=== PATIENT | female | born 1990 | race American Indian/Alaskan Native ===

== ENCOUNTER 2018-07-27 17:44 | Emergency (ER) | payer MEDICAID, OTHER ==
[2018-07-27 17:45] VITALS: BMI 30.1
[2018-07-27 18:12] VITALS: RESP 18; O2SAT 100
[2018-07-27] MEDS ORDERED: Sodium Chloride 0.9% 1,000 ML IV STA (18:18)
[2018-07-27 19:01] LABS: PH,URINE 6.5 (4.7-8.0); URINE BILIRUBIN SMALL (NEGATIVE); URINE BLOOD SMALL (NEGATIVE); URINE GLUCOSE (UA) NEGATIVE (NEGATIVE); URINE LEUKOCYTE ESTERASE SMALL Leu/uL (NEGATIVE); URINE PROTEIN 30 mg/dL (<30 mg/dL)
[2018-07-27 19:02] LABS: URINE APPEARANCE CLEAR (CLEAR); URINE COLOR YELLOW (YELLOW)
[2018-07-27 19:08] LABS: ALB/GLOB RATIO 1.5 (1.1-1.8); ALBUMIN 4.5 g/dL (3.0-4.8); ALT/SGPT 22 U/L (7-56); AST/SGOT 17 U/L (14-36); BLOOD UREA NITROGEN 11 mg/dL (7-21); CALCIUM 9.7 mg/dL (8.4-10.5); GFR NON-AFRICAN AMERICAN > 60
[2018-07-27] MEDS ORDERED: Potassium Chloride 20 mEq ER Tab PO STA (19:11)
[2018-07-27 19:15] LABS: BASO # 0.03 K/mm3 (0.0-2.0); BASO % 0.4 % (0.0-3.0); EOS # 0.1 (0.0-0.7); EOS % 0.7 % (1.5-5.0); GRAN # 4.44 (1.4-6.5); GRAN % 63.6 % (50.0-68.0); LYMPH # 1.8 (1.2-3.4); LYMPH % 25.8 % (22.0-35.0); MEAN CELL VOLUME 85.5 fl (80.0-105.0); MEAN CORPUSCULAR HEMOGLOBIN 29.8 pg (25.0-35.0); MEAN CORPUSCULAR HGB CONC 34.8 g/dl (31.0-37.0); MEAN PLATELET VOLUME 9.9 fl (7.0-11.0); MONO # 0.7 (0.1-0.6); MONO % 9.5 % (1.0-6.0); RBC 4.7 10^6/uL (3.5-6.1); RED CELL DISTRIBUTION WIDTH 13.5 % (11.5-14.5); URINE BACTERIA MANY (NEG); URINE CALCIUM OXALATE CRYSTALS FEW /hpf
--- NOTE | 2018-07-27 19:15 | ED PDOC ---
Arrival/HPI - General Chief Complaint: GI Problem Time Seen by Provider: 07/27/18 18:17 Historian: Patient - History of Present Illness Narrative History of Present Illness (Text): 07/27/18 19:13 27-year-old female presents today with a one-week history of nausea and vomiting. Patient denies fevers or chills. Denies chest pain or shortness of breath. Patient states she is unsure of her last menstrual period. Patient states she's been feeling nauseous throughout the days and has been vomiting frequently. She is complaining of some slight abdominal pain which she relates to frequent vomiting. She denies pain in the back. She denies dysuria. She denies vaginal bleeding or vaginal discharge. No other complaints Past Medical History - Provider Review Nursing Documentation Reviewed: Yes - Travel History Have you recently traveled outside [place] w/in the past 3 mons?: No - Psychiatric Hx Substance Use: No - Anesthesia Hx Anesthesia: No Hx Anesthesia Reactions: No Hx Malignant Hyperthermia: No Family/Social History - Physician Review Nursing Documentation Reviewed: Yes Family/Social History: Unknown Family HX Smoking Status: Never Smoked Hx Alcohol Use: No Hx Substance Use: No Allergies/Home Meds Allergies/Adverse Reactions: Allergies No Known Allergies Allergy (Verified 05/12/16 16:46) Review of Systems - Review of Systems Constitutional: absent: Fatigue, Fevers Respiratory: absent: SOB, Cough Cardiovascular: absent: Chest Pain, Palpitations Gastrointestinal: Abdominal Pain, Nausea, Vomiting. absent: Constipation, Diarrhea Genitourinary Female: absent: Dysuria, Frequency, Hematuria, Vaginal Bleeding, Vaginal Discharge Musculoskeletal: absent: Arthralgias, Back Pain, Neck Pain Skin: absent: Rash, Pruritis Neurological: absent: Headache, Dizziness Psychiatric: absent: Anxiety, Depression, Suicidal Ideation Physical Exam Vital Signs Reviewed: Yes Vital Signs Temp Pulse Resp BP Pulse Ox 07/27/18 18:07 98.8 F 78 18 107/58 L 100 Temperature: Afebrile Blood Pressure: Normal Pulse: Regular Respiratory Rate: Normal Appearance: Positive for: Well-Appearing, Non-Toxic, Comfortable Pain Distress: None Mental Status: Positive for: Alert and Oriented X 3 - Systems Exam Head: Present: Atraumatic Mouth: Present: Moist Mucous Membranes Neck: Present: Normal Range of Motion Respiratory/Chest: Present: Clear to Auscultation, Good Air Exchange. No: Respiratory Distress, Accessory Muscle Use Cardiovascular: Present: Regular Rate and Rhythm, Normal S1, S2. No: Murmurs Abdomen: Present: Normal Bowel Sounds. No: Tenderness, Distention, Peritoneal Signs, Rebound, Guarding Back: Present: Normal Inspection. No: CVA Tenderness, Midline Tenderness, Paraspinal Tenderness Upper Extremity: Present: Normal ROM Lower Extremity: Present: Normal ROM Neurological: Present: GCS=15, Speech Normal Skin: Present: Warm, Dry, Normal Color. No: Rashes Psychiatric: Present: Alert, Oriented x 3 Medical Decision Making ED Course and Treatment: 07/27/18 19:19 Patient is nontoxic well appearing in no distress. vital signs are stable. CBC: wnl CMP: k:3.3 Beta hC TYPE AND SCREEN: A+ Urinalysis: leukocytes Ultrasound:FINDINGS: Gestation: There is a intrauterine gestational sac present. Medial sac is present measuring 4.1 mm. The CRL 5.8 mm 6 weeks 3 days gestational age. Heart rate 130 bpm Gestational sac measures 1.6 cm 6 weeks gestational age. Ultrasound gestational age 6 weeks 2 days [facility] 03/20/2019 Placenta/amniotic fluid: Cannot be adequately evaluated due to the early gestational age. Uterus/cervix: The cervix measures 3 cm the cervical os is closed. Cervical myometrial cysts are seen, the largest measures 5.5 mm x 3.6 mm Ovaries: RIGHT ovary 2.4 cm x 1.7 cm x 1.5 cm. Normal blood flow LEFT ovary 2.2 cm 1.7 cm x 1.5 cm. normal blood flow No mass. Free fluid: No free fluid. IMPRESSION: 1. Single living intrauterine . 2. Gestational age 6 weeks 2 days [facility] 03/20/2019. 3. Negative bilateral ovaries. 4. Negative uterus and cervix. 5. Cervical myometrial cysts pt started to vomit in er; i discussed risks and benefits of reglan with patient. pt understands the risk of harm with reglan; pt has agreed to taking reglan for nausea/vomiting. pt given macrobid for UTI pt given potassium for Discussed all the results the patient. advised f/u with the aerospace engineer officer armament within the next 2 days. advised immediate return if symptoms worsen,persist or if new symptoms develop. Patient verbalizes understanding of discharge instructions and need for immediate followup. all aspects of this case were discussed the attending of record. Impression:nausea and vomiting in , UTI Tylenol every 4 hours as needed for pain Increase fluids take vitamins daily diclegis; take 2 tablets at bedtime macrobid; 1 tablet twice daily x 10 days. Followup with the director digital catalogue within the next 2 days Return immediately if symptoms worsen persist or if new symptoms develop: High fevers, heavy bleeding, severe abdominal pain, vomiting, diarrhea, dizziness or weakness or any other concerning symptoms develop. - Lab Interpretations Lab Results: 07/27/18 18:40 07/27/18 18:40 Lab Results 07/27/18 19:00: Blood Type Pending, Antibody Screen Pending, BBK History Checked No verified bt 07/27/18 18:40: WBC 7.0, RBC 4.70, Hgb 14.0, Hct 40.2, MCV 85.5, MCH 29.8, MCHC 34.8, RDW 13.5, Plt Count 306, MPV 9.9, Gran % 63.6, Lymph % (Auto) 25.8, [place] % (Auto) 9.5 H, Eos % (Auto) 0.7 L, Baso % (Auto) 0.4, Gran # 4.44, Lymph # ( Auto) 1.8, [place] # (Auto) 0.7 H, Eos # (Auto) 0.1, Baso # (Auto) 0.03 07/27/18 18:40: Beta HCG, Quant 05143.00 H 07/27/18 18:40: Sodium 136, Potassium 3.3 L, Chloride 98, Carbon Dioxide 27, Anion Gap 14, BUN 11, Creatinine 0.6 L, Est GFR ( Amer) > 60, Est GFR ( Non-Af Amer) > 60, Random Glucose 86, Calcium 9.7, Total Bilirubin 1.7 H, AST 17 , ALT 22, Alkaline Phosphatase 51, Total Protein 7.7, Albumin 4.5, Globulin 3.1 , Albumin/Globulin Ratio 1.5 07/27/18 18:40: Urine Color Yellow, Urine Appearance Clear, Urine pH 6.5, Ur Specific Quail >= 1.030, Urine Protein 30 H, Urine Glucose (UA) Negative, Urine Ketones >=80, Urine Blood Small H, Urine Nitrate Negative, Urine Bilirubin Small H, Urine Urobilinogen 1.0 H, Ur Leukocyte Esterase Small H, Urine RBC 5 - 10, Urine WBC 10 - 15, Ur Epithelial Cells 6 - 8, Calcium Oxalate Crystal Few, Amorphous Sediment Few, Urine Bacteria Many, Urine Other Uyeast - RAD Interpretation Radiology Orders: 07/27/18 18:17 OB TRANSVAGINAL [US] Stat - Medication Orders Current Medication Orders: Discontinued Medications Acetaminophen (Tylenol 325mg Tab) 975 mg PO STAT STA Stop: 07/27/18 18:19 Last Admin: 07/27/18 18:36 Dose: 975 mg MAR Pain/Vitals Document 07/27/18 18:36 EQ (Rec: 07/27/18 18:36 EQ [id number]) Pain Reassessment Is This A Pain ReAssessment? No Sleep Is patient sleeping during reassessment? No Presence of Pain Presence of Pain Yes Famotidine (Pepcid) 20 mg IVP STAT STA Stop: 07/27/18 18:19 Last Admin: 07/27/18 18:36 Dose: 20 mg IVP Administration Document 07/27/18 18:36 EQ (Rec: 07/27/18 18:36 EQ [id number]) Charges for Administration # of IVP Administrations 1 Sodium Chloride (Sodium Chloride 0.9%) 1,000 mls @ 999 mls/hr IV .Q1H1M STA Stop: 07/27/18 19:18 Last Admin: 07/27/18 18:35 Dose: 999 mls/hr eMAR Start Stop Document 07/27/18 18:35 EQ (Rec: 07/27/18 18:35 EQ [id number]) Intravenous Solution Start Date 07/27/18 Start Time 18:35 Metoclopramide HCl (Reglan) 10 mg IVP STAT STA Stop: 07/27/18 20:13 Nitrofurantoin Macrocrystals (Macrobid) 100 mg PO STAT STA PRN Reason: Protocol Stop: 07/27/18 20:01 Potassium Chloride (K-Dur 20 Meq Er Tab) 40 meq PO STAT STA Stop: 07/27/18 19:12 Disposition/Present on Arrival - Present on Arrival Any Indicators Present on Arrival: No History of DVT/PE: No History of Uncontrolled Diabetes: No Urinary Catheter: No History of Decub. Ulcer: No History Surgical Site Infection Following: None - Disposition Have Diagnosis and Disposition been Completed?: Yes Diagnosis: Nausea and vomiting during , Urinary tract infection Disposition: HOME/ ROUTINE Disposition Time: 20:12 Patient Plan: Discharge Patient Problems: Current Active Problems Problem Status Onset Nausea and vomiting during Acute Urinary tract infection Acute Condition: GOOD Discharge Instructions (ExitCare): Nausea and Vomiting of (DC) Additional Instructions: Tylenol every 4 hours as needed for pain Increase fluids take vitamins daily diclegis; take 2 tablets at bedtime macrobid; 1 tablet twice daily x 10 days. Followup with the director digital catalogue within the next 2 days Return immediately if symptoms worsen persist or if new symptoms develop: High fevers, heavy bleeding, severe abdominal pain, vomiting, diarrhea, dizziness or weakness or any other concerning symptoms develop. Prescriptions: Doxylamine/Pyridoxine HCl (B6) [Diclegis Dr 10-10 mg Tablet] 2 tab PO HS #15 tab Nitrofurantoin Macrocrystals [Macrobid] 100 mg PO BID #20 cap Pnv No.95/Ferrous Fum/Folic AC [ Tablet] 1 each PO DAILY #30 tablet Referrals: [facility] [Outside] - Follow up with primary Mc Grier MD [Staff Provider] - [facility] [[facility]] - Follow up with primary Forms: [employer] (Italian), WORK NOTE
[2018-07-27 19:16] LABS: URINE AMORPHOUS SEDIMENT FEW
[2018-07-27 21:34] VITALS: BP 113/60; PULSE 74; TEMP 98.7
--- NOTE | 2018-07-28 13:26 | US ---
Date of service: 07/27/18 Ob transvaginal ultrasound Indication: pain/n/v preg test Comparison: None available Technique: Transvaginal pelvic ultrasound Findings: The uterus measures approximately 7.1 x 4.8 x 4.5 cm. Cervix length measures approximately 3.0 cm. Nabothian cysts. There is a single intrauterine fetus present. 4 mm yolk sac. The gestational sac measures 1.7 cm and is compatible with a gestational age of 6 weeks 0 days. The crown-rump length measures 0.6 cm and is compatible with a gestational age of 6 weeks 3 days. There is heart motion which measured 130 BPM. The right ovary measures 2.4 x 1.8 x 1.8 cm. The left ovary measures 2.2 x 1.7 x 1.6 cm. Blood flow was demonstrated to both ovaries. Impression: Live single intrauterine with estimated gestational age 6 weeks 2 days. heart rate 130 bpm. Advise an anomaly screen at 16-18 weeks gestational age. Preliminary impression was provided by [facility].
== END 2018-07-27 21:44 | disposition home or self-care (01) ==
LOC: ED 17:44
DX: O23.41 Unspecified infection of urinary tract in pregnancy, first trimester (principal); O21.9 Vomiting of pregnancy, unspecified; Z3A.01 Less than 8 weeks gestation of pregnancy
CPT/HCPCS: 76817; 80053; 81001; 84702; 85025; 86850; 86900; 87086; 96374; 96375; 99284; J2765; J7030